=== PATIENT | male | born 1960 | race Caucasian/White ===

== ENCOUNTER 2023-01-24 09:39 | Outpatient (CLI) | payer OTHER, SELFPAY ==
--- NOTE | ~2023-01-24 | XR_ITS ---
Supine and upright views of the abdomen Clinical history: Renal stone COMPARISON: 04/01/2016 Findings: Bowel gas pattern is nonspecific. No evidence for obstruction or free air. Left ureteral st ent in place. Bilateral renal stones are present, measuring up to 6 mm at the right lower pole, and a pproximately 1.7 cm at the left lower pole.. Osseous structures are intact. Impression: Bilateral nephrolithiasis, as detailed above. Left ureteral stent. Reviewed, dictated and finalized at location M. Impression: Bilateral nephrolithiasis, as detailed above. Left ureteral stent.
== END 2023-01-24 09:40 | disposition home or self-care (01) ==
PROVIDERS: Visit Provider Urology
DX: N20.0 Calculus of kidney (principal)
CPT/HCPCS: 74018

== ENCOUNTER 2023-02-23 08:21 | Outpatient (CLI) | payer OTHER, SELFPAY ==
--- NOTE | ~2023-02-23 | XR_ITS ---
EXAMINATION: XR abdomen/kub 1V DATE: 02/23/2023 08:42 INDICATION: Calculus of kidney. TECHNIQUE: A supine view of the abdomen on 2 radiographs was obtained. COMPARISON: Abdomen radiograph 01/24/2023 FINDINGS: There are no dilated loops of bowel. There is a 6 mm stone in right kidney. There is a left internal ureteral stent in expected position. There are multiple stones or clusters of stones in lef t kidney measuring up to at least 5 mm. There are multiple stones in proximal left ureter measuring u p to 3 mm. A 7 x 3 mm calcification overlying distal left ureter may be a stone. Calcifications overl emmy the pelvis without change in configuration may be prostate calcifications. IMPRESSION: 1. Stones in the kidneys and left ureter with left internal ureteral stent in expected position. Reviewed, dictated and finalized at location A. IMPRESSION: 1. Stones in the kidneys and left ureter with left internal ureteral stent in e xpected position.
== END 2023-02-23 08:22 | disposition home or self-care (01) ==
PROVIDERS: Visit Provider Urology
DX: N20.2 Calculus of kidney with calculus of ureter (principal)
CPT/HCPCS: 74018

== ENCOUNTER 2023-05-11 09:12 | Outpatient (CLI) | payer MEDICARE, OTHER, SELFPAY ==
--- NOTE | ~2023-05-11 | US_ITS ---
EXAMINATION: US retroperitoneal comp DATE: 05/11/2023 10:00 INDICATION: Nephrolithiasis TECHNIQUE: Multiple ultrasound grayscale images of the kidneys were obtained. COMPARISON: KUB dated 05/11/2023 FINDINGS: The right kidney measures 12.4 x 5.8 x 5.4 cm. The left kidney measures 11.2 x 6.4 x 5.7 cm. The kidn eys demonstrate normal echogenicity. 5 mm echogenic stone with posterior twinkle artifact at the mid right kidney which appears to correlate with the stone seen on KUB. There are a few additional foci o f twinkle artifact in the lower right and mid to lower left kidneys without evident correlate on the KUB or well-defined echogenic stone suggestive of a few smaller renal stones. There is no hydronephro sis in either kidney. The bladder is normal with bilateral ureteral jets visualized on color Doppler. IMPRESSION: 1. 5 mm stone at the lower pole of the right kidney corresponding to finding on prior KUB. Additiona l foci of twinkle artifact suggesting presence of additional smaller bilateral renal stones unable to be clearly visualized by ultrasound or CT. 2. No hydronephrosis in either kidney with bilateral ureteral jets seen in the bladder. Reviewed, dictated and finalized at location A. IMPRESSION: 1. 5 mm stone at the lower pole of the right kidney corresponding to finding o n prior KUB. Additional foci of twinkle artifact suggesting presence of additio nal smaller bilateral renal stones unable to be clearly visualized by ultrasoun d or CT. 2. No hydronephrosis in either kidney with bilateral ureteral jets seen in the bladder.
--- NOTE | ~2023-05-11 | XR_ITS ---
Supine and upright views of the abdomen Clinical history: Renal stone COMPARISON: 02/23/2023 Findings: Bowel gas pattern is nonspecific. No evidence for obstruction or free air. 6 mm right lower pole renal stone present. Osseous structures are intact. Impression: 6 mm right lower pole renal stone. Reviewed, dictated and finalized at [facility]. Impression: 6 mm right lower pole renal stone.
== END 2023-05-11 09:13 | disposition home or self-care (01) ==
PROVIDERS: Visit Provider Urology
DX: N20.0 Calculus of kidney (principal)
CPT/HCPCS: 74018; 76770

== ENCOUNTER 2023-07-04 10:32 | Outpatient (CLI) | payer MEDICARE, OTHER, SELFPAY ==
--- NOTE | ~2023-07-04 | XR_ITS ---
EXAMINATION: XR abdomen/kub 1V DATE: 07/04/2023 10:52 INDICATION: Right kidney stone. TECHNIQUE: A supine view of the abdomen on 2 radiographs was obtained. COMPARISON: Abdomen radiographs 05/11/2023 FINDINGS: There are no dilated loops of bowel. There is a small volume of stool in the colon. There i s no visible urolithiasis. IMPRESSION: 1. No visible urolithiasis. Reviewed, dictated and finalized at location A. [employer] SALES CONSULTANT IMPRESSION: 1. No visible urolithiasis.
== END 2023-07-04 10:33 | disposition home or self-care (01) ==
PROVIDERS: Visit Provider Urology
DX: N20.0 Calculus of kidney (principal)
CPT/HCPCS: 74018

== ENCOUNTER 2023-12-12 06:49 | Outpatient (CLI) | payer MEDICARE, OTHER, SELFPAY ==
--- NOTE | ~2023-12-12 | XR_ITS ---
EXAMINATION: XR abdomen/kub 1V DATE: 12/12/2023 07:07 INDICATION: Calculus of kidney. TECHNIQUE: A supine view of the abdomen on 2 radiographs was obtained. COMPARISON: Abdomen radiographs 07/04/2023 FINDINGS: There are no dilated loops of bowel. There is a 4 mm stone in left kidney. IMPRESSION: 1. 4 mm stone in left kidney. Reviewed, dictated and finalized at location A.
== END 2023-12-12 06:50 | disposition home or self-care (01) ==
PROVIDERS: Visit Provider Urology
DX: N20.0 Calculus of kidney (principal)
CPT/HCPCS: 74018

== ENCOUNTER 2025-01-01 08:40 | Outpatient (CLI) | payer MEDICARE, OTHER, SELFPAY ==
--- NOTE | ~2025-01-01 | XR_ITS ---
XR abdomen/kub 1V Ordering provider: Luz Maria Cook, FACILITIES PAINTER History: . Calculus of kidney, follow-up . Comparison: None. FINDINGS: BOWEL: Nonobstructive bowel gas pattern. ORGANOMEGALY: None. SIGNIFICANT PATHOLOGIC CALCIFICATIONS: Tiny calcification seen in the left kidney lower pole. OTHER: No free air is seen under the diaphragm. Degenerative changes of the spine. IMPRESSION: NO ACUTE ABDOMINAL FINDINGS. Highly suggestive tiny stones in the left kidney lower pole. noncontrast CT abdomen is better for ev aluation. Reviewed, dictated and finalized at location A. IMPRESSION: NO ACUTE ABDOMINAL FINDINGS. Highly suggestive tiny stones in the left kidney lower pole. noncontrast CT ab domen is better for evaluation.
--- OUTSIDE RECORDS SUMMARY | 2025-01-01 08:45 | XMS_ITS | Clinical Summary ---
Author Organization [facility] Address [address] [place] [phone] Phone Care Team Providers Care Entry Level Electrical Engineer Name Role Phone Alexandre Kuhn MD Primary Care Provider [phone] Allergies No known active allergies Medications atorvastatin (LIPITOR) 40 MG tablet Take 40 mg by mouth 1 (one) time each day 11/15/2022 Active tamsulosin (FLOMAX) 0.4 MG 24 hr capsule Take 0.4 mg by mouth 1 (one) time each day 01/15/2023 Active metoprolol succinate XL (TOPROL-XL) 50 MG 24 hr tablet Take 75 mg by mouth 1 (one) time each day 02/19/2023 Active finasteride (PROSCAR) 5 MG tablet Take 5 mg by mouth 1 (one) time each day 04/23/2023 Active aspirin (ST BIANCA) 81 MG EC tablet Take 81 mg by mouth 1 (one) time each day Active potassium citrate (UROCIT-K) 10 MEQ (1080 MG) CR tablet Take 1 tablet (10 mEq total) by mouth in the morning and 1 tablet (10 mEq total) in the evening. Take with meals. 180 tablet 2 01/31/2024 Active chlorthalidone (HYGROTON) 25 MG tablet Take 0.5 tablets (12.5 mg total) by mouth 1 (one) time each day 45 tablet 2 01/31/2024 Active Social History Tobacco Use Types Packs/Day Years Used Date Smoking Tobacco: Unknown Tobacco Cessation:Counseling Given: Not Answered Sex and Gender Information Value Date Recorded Sex Assigned at Not on file Legal Sex Male 3:15 PM MDT Gender Identity Not on file Sexual Orientation Not on file Last Filed Vital Signs Vital Sign Reading Time Taken Comments Blood Pressure 140/83 01/31/2024 9:31 AM CDT Pulse 72 01/31/2024 9:31 AM CDT Temperature - - Respiratory Rate - - Oxygen Saturation - - Inhaled Oxygen Concentration - - Weight 134 kg (295 lb) 01/31/2024 9:31 AM CDT Height 182.9 cm (6') 01/31/2024 9:31 AM CDT Body Mass Index 40.01 01/31/2024 9:31 AM CDT Plan of Treatment Upcoming Encounters Date Type Department Care Team (Late st Contact Info) Description 03/10/2025 9:20 AM CDT Office Visit [facility] [address] [place], [place] [id number] Alejandro Lira MD [address] [place], [place] [id number] Health Maintenance Due Date Last Done Comments Pneumococcal PPSV23/PCV13 65 + Years / High and Highest Risk (1 of 5 - PCV) 1979 Influenza Vaccine (Season Ended) 2025 Insurance MEDICARE [facility] [place] [address] Care Teams Entry Level Electrical Engineer Relationship Specialty Start Date End Date Alexandre Kuhn MD [address] [place] [phone] PCP - General 05/29/23
== END 2025-01-01 08:41 | disposition home or self-care (01) ==
PROVIDERS: PCP Family Medicine; Visit Provider Nurse Practitioner Family
DX: N20.0 Calculus of kidney (principal)
CPT/HCPCS: 74018